=== PATIENT | male | born 1950 | race Caucasian/White ===

== ENCOUNTER 2019-01-04 10:45 | Inpatient (IN) | payer MEDICARE ==
[~2019-01-04] VITALS: Ht 180.3 cm; Wt 100.8 kg
[2019-01-04 11:51] LABS: BASOPHILS % (AUTO) 0.4 % (0.0-5.0); EOSINOPHILS % (AUTO) 0.9 % (0.0-8.0); HEMATOCRIT 27.8 % (42-54); LYMPHOCYTES % (AUTO) 25.6 % (21.0-51.0); MEAN CORPUSCULAR HEMOGLOBIN 30.4 pg (27.0-33.0); MEAN CORPUSCULAR HGB CONC 34.3 g/dL (32.0-36.0); MEAN CORPUSCULAR VOLUME 88.6 fL (79-99); NEUTROPHILS % (AUTO) 67.1 % (40.0-77.0); PLATELET COUNT (AUTO) 211 K/uL (130-400); RED BLOOD CELL COUNT(AUTO) 3.13 MIL/uL (4.50-6.20); RED CELL DISTRIBUTION WIDTH 15.1 % (11.0-15.5); WHITE BLOOD COUNT (AUTO) 6.1 K/uL (4.8-10.8)
[2019-01-04 11:58] LABS: APPEARANCE,URINE Clear (CLEAR); BILIRUBIN,URINE Negative (NEGATIVE); COLOR,URINE Yellow (YELLOW); GLUCOSE, URINE (UA) Negative (NEGATIVE); KETONES,URINE Negative (NEGATIVE); LEUKOCYTE ESTERASE ,URINE Negative (NEGATIVE); NITRATE,URINE Negative (NEGATIVE); OCCULT BLOOD,URINE Negative (NEGATIVE); PH,URINE 5.5 (5.0-8.0); PROTEIN,URINE Negative (NEGATIVE)
[2019-01-04 12:00] LABS: CREATININE 0.9 mg/dL (0.5-1.5); POTASSIUM 3.4 mmol/L (3.5-5.1)
[2019-01-04 12:06] LABS: ALBUMIN 3.7 g/dL (3.5-5.0); BILIRUBIN,TOTAL 0.5 mg/dL (0.2-1.0); TOTAL PROTEIN, SERUM 6.4 g/dL (6.0-8.3)
[2019-01-04 12:11] LABS: B-TYPE NATRIURETIC PEPTIDE 22 pg/mL (0-100)
[2019-01-04 12:30] LABS: INR 0.98 (0.85-1.15); PARTIAL THROMBOPLASTIN TIME 24.7 SEC (26.3-35.5); PROTHROMBIN TIME 10.3 SEC (9.6-11.6)
[2019-01-04 14:40] LABS: FERRITIN 7 ng/mL (30-400); IRON, SERUM 22 mcg/dL (65-175)
[2019-01-04 14:42] LABS: RETICULOCYTE % (AUTO) 6.22 % (0.42-2.23)
[2019-01-04] MEDS: IRON SUCROSE COMPLEX 100 MG in SODIUM CHLORIDE 0.9% 50 ML IV SCH (16:00)
[2019-01-04] MEDS ORDERED: HYDRALAZINE HCL 20 MG/ML VIAL IV PRN (16:00)
[2019-01-04] MEDS: POTASSIUM CHLORIDE 20 MEQ ERTAB PO SCH (16:00)
[2019-01-04] MEDS: LEVOFLOXACIN 500 MG/D5W 100 ML 100 ML IV SCH (16:00)
[2019-01-04] MEDS ORDERED: ACETAMINOPHEN 325 MG TAB PO PRN (16:00)
[2019-01-04] MEDS: METRONIDAZOLE 500MG/100ML BAG 100 ML IV SCH (16:00)
[2019-01-04] MEDS ORDERED: COMPOUND IV MISC 1 EACH IVSOLN MISC PRN (16:15)
[2019-01-04] MEDS ORDERED: LEVOFLOXACIN 500 MG/D5W 100 ML 100 ML ONE (16:21)
[2019-01-04] MEDS ORDERED: METRONIDAZOLE 500MG/100ML BAG 100 ML ONE (16:21)
[2019-01-04] MEDS ORDERED: SODIUM CHLORIDE 0.9% 1000ML 1,000 ML IV ONE (16:22)
[2019-01-04 19:16] LABS: PHOSPHORUS 2.6 mg/dL (2.5-4.9); THYROID STIMULATING HORMONE 0.79 uIU/mL (0.36-3.74)
[2019-01-04] MEDS ORDERED: FAMOTIDINE/PF 20 MG/2 ML VIAL IV ONE (20:39)
[2019-01-04] MEDS ORDERED: POTASSIUM CHLORIDE 20 MEQ ERTAB PO ONE (20:45)
[2019-01-04] MEDS ORDERED: MAGNESIUM 2GM PREMIX 50ML 50 ML IV ONE (20:52)
[2019-01-04] MEDS: FAMOTIDINE/PF 20 MG/2 ML VIAL IV SCH (21:00)
[2019-01-04 22:00] VITALS: BP 148/66
[2019-01-04] MEDS ORDERED: MAGNESIUM 2GM PREMIX 50ML 50 ML IV PRN (23:45)
[2019-01-05] VITALS: BP 126/69
[2019-01-05] MEDS: SODIUM CHLORIDE 0.9% 1000ML 1,000 ML IV SCH ×4 (00:19→12:11)
[2019-01-05] MEDS: METRONIDAZOLE 500MG/100ML BAG 100 ML IV SCH ×4 (00:26→23:53)
[2019-01-05] MEDS ORDERED: APIX5TAB PO (01:40)
[2019-01-05] MEDS ORDERED: PROP225T3 PO (01:40)
[2019-01-05] MEDS ORDERED: LOSA25TA41 PO (01:40)
[2019-01-05 04:00] VITALS: BP 108/48
[2019-01-05 06:26] LABS: BASOPHILS % (AUTO) 0.5 % (0.0-5.0); EOSINOPHILS % (AUTO) 0.7 % (0.0-8.0); HEMATOCRIT 24.1 % (42-54); LYMPHOCYTES % (AUTO) 27.8 % (21.0-51.0); MEAN CORPUSCULAR HEMOGLOBIN 31.2 pg (27.0-33.0); MEAN CORPUSCULAR HGB CONC 34.6 g/dL (32.0-36.0); MEAN CORPUSCULAR VOLUME 90.1 fL (79-99); MONOCYTES % (AUTO) 6.5 % (3.0-13.0); NEUTROPHILS % (AUTO) 64.5 % (40.0-77.0); NUCLEATED RED BLOOD CELLS 0.1 % (0.0-0.19); PLATELET COUNT (AUTO) 193 K/uL (130-400); RED BLOOD CELL COUNT(AUTO) 2.67 MIL/uL (4.50-6.20); RED CELL DISTRIBUTION WIDTH 15.1 % (11.0-15.5); WHITE BLOOD COUNT (AUTO) 7.3 K/uL (4.8-10.8)
[2019-01-05 06:30] LABS: CREATININE 0.9 mg/dL (0.5-1.5); MAGNESIUM 1.7 mg/dL (1.80-2.40); POTASSIUM 4.2 mmol/L (3.5-5.1)
[2019-01-05] MEDS: PROPAFENONE HCL 150 MG TABLET PO SCH ×3 (06:46→20:35)
[2019-01-05] MEDS: ACETAMINOPHEN 325 MG TAB PO PRN ×2 (06:57→12:15)
[2019-01-05 08:00] VITALS: BP 117/72
[2019-01-05] MEDS: IRON SUCROSE COMPLEX 100 MG in SODIUM CHLORIDE 0.9% 50 ML IV SCH (09:00)
[2019-01-05] MEDS: APIXABAN 5 MG TABLET PO SCH ×2 (09:26→20:35)
[2019-01-05] MEDS: FAMOTIDINE/PF 20 MG/2 ML VIAL IV SCH ×2 (09:27→20:35)
[2019-01-05 11:21] VITALS: BP 126/74
--- NOTE | 2019-01-05 11:56 | NUR ---
D/C PLAN CM spoke to pt regarding d/c plan. Spouse at bedside. Pt lives with spouse. States spouse can assist in care if needed. Denies having any home health or DME. State they recently moved and have not established themselves with a primary care physician. Plan to home. No needs verbalized or identified. CM to f/u. Addendum: 01/05/19 at 1158 by CHAPO RAMIRES CM Amended: Links added.
[2019-01-05] MEDS: TRAMADOL HCL 50 MG TABLET PO SCH ×2 (14:30→20:30)
[2019-01-05] MEDS ORDERED: TRAMADOL HCL 50 MG TABLET PO ONE (14:30)
[2019-01-05 16:00] VITALS: BP 131/74
[2019-01-05] MEDS: POTASSIUM CHLORIDE 20 MEQ ERTAB PO SCH (16:00)
[2019-01-05] MEDS: LEVOFLOXACIN 500 MG/D5W 100 ML 100 ML IV SCH (16:42)
[2019-01-05] MEDS ORDERED: MORPHINE SULFATE 2 MG/ML 1ML SYG ONE (16:44)
[2019-01-05] MEDS ORDERED: MORPHINE SULFATE 2 MG/ML 1ML SYG IVP ONE (16:45)
[2019-01-05 20:13] VITALS: BP 136/73
[2019-01-05] MEDS: LOSARTAN 50 MG TABLET PO SCH (20:35)
[2019-01-05] MEDS ORDERED: FERROUS SULFATE 300 MG/5 ML LIQ UDCUP PO SCH (21:00)
[2019-01-05] MEDS: MORPHINE SULFATE 2 MG/ML 1ML SYG IVP PRN (22:43)
[2019-01-06] VITALS (8 sets, daily range): BP systolic 99–125; BP diastolic 50–74
[2019-01-06] MEDS: TRAMADOL HCL 50 MG TABLET PO SCH ×4 (02:30→20:30)
[2019-01-06] MEDS: PROPAFENONE HCL 150 MG TABLET PO SCH ×3 (04:59→21:16)
[2019-01-06 06:45] LABS: BASOPHILS % (AUTO) 0.4 % (0.0-5.0); EOSINOPHILS % (AUTO) 1.6 % (0.0-8.0); HEMATOCRIT 24.6 % (42-54); LYMPHOCYTES % (AUTO) 25.8 % (21.0-51.0); MEAN CORPUSCULAR HEMOGLOBIN 30.6 pg (27.0-33.0); MEAN CORPUSCULAR HGB CONC 34.3 g/dL (32.0-36.0); MEAN CORPUSCULAR VOLUME 89.1 fL (79-99); MONOCYTES % (AUTO) 7.8 % (3.0-13.0); NEUTROPHILS % (AUTO) 64.4 % (40.0-77.0); NUCLEATED RED BLOOD CELLS 0.1 % (0.0-0.19); PLATELET COUNT (AUTO) 221 K/uL (130-400); RED BLOOD CELL COUNT(AUTO) 2.76 MIL/uL (4.50-6.20); RED CELL DISTRIBUTION WIDTH 14.8 % (11.0-15.5); WHITE BLOOD COUNT (AUTO) 6.9 K/uL (4.8-10.8)
[2019-01-06 06:56] LABS: CREATININE 0.8 mg/dL (0.5-1.5); POTASSIUM 3.9 mmol/L (3.5-5.1)
[2019-01-06 07:04] LABS: % IRON SATURATION 5.4 % (30-44)
[2019-01-06] MEDS: IRON SUCROSE COMPLEX 100 MG in SODIUM CHLORIDE 0.9% 50 ML IV SCH (10:35)
[2019-01-06] MEDS: FAMOTIDINE/PF 20 MG/2 ML VIAL IV SCH ×2 (10:35→21:16)
[2019-01-06] MEDS: APIXABAN 5 MG TABLET PO SCH ×2 (10:35→21:16)
[2019-01-06] MEDS: METRONIDAZOLE 500MG/100ML BAG 100 ML IV SCH (10:35)
[2019-01-06] MEDS: POTASSIUM CHLORIDE 20 MEQ ERTAB PO SCH (12:33)
[2019-01-06] MEDS: HYDROCODONE/ACETAMINOPHEN 5/325 MG TAB PO PRN ×2 (13:39→19:17)
[2019-01-06] MEDS: ONDANSETRON HCL 4 MG/2 ML VIAL IV PRN ×2 (13:44→19:17)
[2019-01-06] MEDS: LOSARTAN 50 MG TABLET PO SCH (21:16)
[2019-01-06] MEDS: MORPHINE SULFATE 2 MG/ML 1ML SYG IVP PRN (23:18)
[2019-01-07] MEDS: TRAMADOL HCL 50 MG TABLET PO SCH ×3 (02:30→14:42)
[2019-01-07 03:35] VITALS: BP 95/62
[2019-01-07 05:01] LABS: BASOPHILS % (AUTO) 0.3 % (0.0-5.0); EOSINOPHILS % (AUTO) 0.9 % (0.0-8.0); HEMATOCRIT 24.9 % (42-54); LYMPHOCYTES % (AUTO) 29.5 % (21.0-51.0); MEAN CORPUSCULAR HEMOGLOBIN 30.9 pg (27.0-33.0); MEAN CORPUSCULAR HGB CONC 34.6 g/dL (32.0-36.0); MEAN CORPUSCULAR VOLUME 89.1 fL (79-99); MONOCYTES % (AUTO) 6.5 % (3.0-13.0); NEUTROPHILS % (AUTO) 62.8 % (40.0-77.0); NUCLEATED RED BLOOD CELLS 0.1 % (0.0-0.19); PLATELET COUNT (AUTO) 214 K/uL (130-400); RED CELL DISTRIBUTION WIDTH 14.7 % (11.0-15.5); WHITE BLOOD COUNT (AUTO) 7.6 K/uL (4.8-10.8)
[2019-01-07] MEDS: PROPAFENONE HCL 150 MG TABLET PO SCH ×2 (05:05→12:57)
[2019-01-07 05:11] LABS: CREATININE 0.8 mg/dL (0.5-1.5); POTASSIUM 4.4 mmol/L (3.5-5.1)
[2019-01-07 08:00] VITALS: BP 119/67
[2019-01-07] MEDS: IRON SUCROSE COMPLEX 100 MG in SODIUM CHLORIDE 0.9% 50 ML IV SCH (09:00)
[2019-01-07] MEDS: APIXABAN 5 MG TABLET PO SCH (10:05)
[2019-01-07] MEDS: FAMOTIDINE/PF 20 MG/2 ML VIAL IV SCH (10:05)
[2019-01-07 12:00] VITALS: BP 111/59
[2019-01-07] MEDS ORDERED: FERR325T22 PO (14:17)
[2019-01-07 16:00] VITALS: BP 112/55
--- NOTE | 2019-01-07 17:24 | NUR ---
PATIENT DISCHARGED PATIENT DISCHARGED, IV DISCONTINUED, CATHLON INTACT, BLEEDING CONTROLLED, PATIENT TOLERATED WITHOUT INCIDENT.
== END 2019-01-07 17:30 | disposition home or self-care (01) | DRG 812 ==
LOC: EDH 10:45 → OBSVTOIN 15:52 → EDHIP 15:52 → 3DH 20:41
PROVIDERS: ADMIT Internal Medicine; ATTEND Internal Medicine
DX: D50.9 Iron deficiency anemia, unspecified (principal); E87.6 Hypokalemia; I48.91 Unspecified atrial fibrillation; Z98.42 Cataract extraction status, left eye; Z98.41 Cataract extraction status, right eye
CPT/HCPCS: 36415; 70450; 71045; 74176; 80048; 80053; 81003; 82150; 82550; 82728; 83540; 83550; 83690; 83735; 83880; 84100; 84145; 84443; 84484; 85025; 85045; 85610; 85730; 93005; G0378; J1756; J1956; J2405; J3475; J3490; J7030

== ENCOUNTER 2019-12-27 07:28 | Day surgery (SDC) | payer MEDICARE ==
--- NOTE | 2019-12-26 10:55 | NUR ---
Pt received Pt was received from PACU via stretcher accompanied by ROCHELLE Mckeon. Pt was restless, crying, responding by nodding head only, hands shaking. Pt able to make eye contact when spoken. Pt not responding verbally. VS wnl. Has band aid to abdomen dry and intact with samara pad in place with scant bleeding noted. Pt looking around with freighting look but unable to respond verbally when asked if ok or if something was wrong. Dr. Sagastume made aware. Stated would come to assess pt. Addendum: 12/26/19 at 1830 by CHEKO MONTANO RN RN Dr. Sagastume ordered to give Versed 1mg IV. Med adminsitered as ordered with no result.
--- NOTE | 2019-12-26 11:30 | NUR ---
here Dr. Sagastume arrived assessing patient. Stated to have (hosptalist) evaluate patient. Dr. Carnes made aware and arrived few minutes after call. Dr. Carnes here and ordered Ativan 0.5mg IV. Med given with no results. Ordered to repeat dose.
--- NOTE | 2019-12-26 12:00 | NUR ---
Adwoa Hylton, Dr. Sagastume and Dr. Carnes present assessing pt. Continues with same behavior, VS wnl. Dr. Carnes ordered Benadryl 25mg IV and for pt to be admitted for observation. Dr. Carnes called pt's mother and made her aware of condition. Stretcher with side rails padded.
--- NOTE | 2019-12-26 12:20 | NUR ---
F/U Pt sleeping comfortably at this time. VS wnl. O2 sats remain above 97% at room air. Significant other at bedside and made aware of occurence. Will continue to monitor.
--- NOTE | 2019-12-26 13:00 | NUR ---
Pt sleeping Pt continues sleeping; VS wnl. O2 sat above 98%. Significant other at bedside. Dr. Carnes in dept. assessing pt.
--- NOTE | 2019-12-26 15:00 | NUR ---
Pt transfer Pt prepared to transfer to room 311. Pt continues sleeping but arousable, responding to questions appropriately. Speech clear. Pt was received by ROCHELLE Norton. Report given.
[2019-12-26 15:45] LABS: BASOPHILS % (AUTO) 0.7 % (0.0-5.0); EOSINOPHILS % (AUTO) 1.5 % (0.0-8.0); HEMATOCRIT 52.5 % (42-54); LYMPHOCYTES % (AUTO) 27.3 % (21.0-51.0); MEAN CORPUSCULAR HEMOGLOBIN 30.5 pg (27.0-33.0); MEAN CORPUSCULAR HGB CONC 34.5 g/dL (32.0-36.0); MEAN CORPUSCULAR VOLUME 88.5 fL (79-99); NEUTROPHILS % (AUTO) 63.3 % (40.0-77.0); PLATELET COUNT (AUTO) 263 K/uL (130-400); RED BLOOD CELL COUNT(AUTO) 5.93 MIL/uL (4.50-6.20); RED CELL DISTRIBUTION WIDTH 13.2 % (11.0-15.5); WHITE BLOOD COUNT (AUTO) 9.1 K/uL (4.8-10.8)
[2019-12-26 15:52] LABS: CREATININE 0.8 mg/dL (0.5-1.5); POTASSIUM 4.5 mmol/L (3.5-5.1)
[2019-12-26 17:42] VITALS: BP 150/80
[~2019-12-27] VITALS: Ht 180.3 cm; Wt 98.0 kg
[2019-12-27] VITALS (14 sets, daily range): BP systolic 111–141; BP diastolic 68–87
[~2019-12-27 07:28] MED LIST: AEC81 PO; APIX5TAB PO; DOCU-116 PO; LOSA25TA41 PO; PROP225T3 PO
[2019-12-27] MEDS ORDERED: SODIUM CHLORIDE 0.9% 1000ML 1,000 ML IV SCH (08:00)
[2019-12-27] MEDS ORDERED: FENTANYL CITRATE PF 50 MCG/1 ML 2ML VIAL ONE (08:46)
[2019-12-27] MEDS ORDERED: MIDAZOLAM HCL 1 MG/ML 2ML VIAL ONE (08:47)
[2019-12-27] MEDS ORDERED: ONDANSETRON HCL 4 MG/2 ML VIAL ONE (09:52)
== END 2019-12-27 10:40 | disposition home or self-care (01) ==
LOC: DAH 07:28 → SUH 07:28
PROVIDERS: ATTEND Internal Medicine Cardiovascular Disease
DX: I48.0 Paroxysmal atrial fibrillation (principal); D68.59 Other primary thrombophilia; I10 Essential (primary) hypertension; G47.33 Obstructive sleep apnea (adult) (pediatric); M19.90 Unspecified osteoarthritis, unspecified site; Z79.01 Long term (current) use of anticoagulants; Z79.82 Long term (current) use of aspirin; Z79.899 Other long term (current) drug therapy; Z87.891 Personal history of nicotine dependence
CPT/HCPCS: 36415; 80048; 85025; 92960; 93005 ×2; A4215; A4216; A4221; A4222; A4223 ×3; A4600; A4606; A4663; J2250; J2405; J3010; J7030; 99152

== ENCOUNTER → 2020-02-21 | Outpatient (CLI) | payer MEDICARE | END | disposition home or self-care (01) | LOC: SHCH 08:30 | PROVIDERS: ATTEND Internal Medicine Cardiovascular Disease | DX: I48.0 Paroxysmal atrial fibrillation (principal); R06.09 Other forms of dyspnea | CPT/HCPCS: 93306; 93356 ==

== ENCOUNTER → 2021-11-17 | Outpatient (CLI) | payer MEDICARE | END | disposition home or self-care (01) | LOC: SHCH 15:32 | PROVIDERS: ATTEND Internal Medicine Cardiovascular Disease | DX: I11.9 Hypertensive heart disease without heart failure (principal); I48.0 Paroxysmal atrial fibrillation; F17.200 Nicotine dependence, unspecified, uncomplicated; I48.20 Chronic atrial fibrillation, unspecified | CPT/HCPCS: 93306 ==

== ENCOUNTER 2021-12-28 06:54 | Day surgery (SDC) | payer MEDICARE ==
[2021-12-23 13:58] LABS: HEMATOCRIT 51.9 % (42-54); MEAN CORPUSCULAR HEMOGLOBIN 30.4 pg (27.0-33.0); MEAN CORPUSCULAR HGB CONC 34.7 g/dL (32.0-36.0); MEAN CORPUSCULAR VOLUME 87.7 fL (79-99); PLATELET COUNT (AUTO) 217 K/uL (130-400); RED BLOOD CELL COUNT(AUTO) 5.92 MIL/uL (4.50-6.20); RED CELL DISTRIBUTION WIDTH 13.4 % (11.0-15.5); WHITE BLOOD COUNT (AUTO) 7.8 K/uL (4.8-10.8)
[2021-12-23 14:06] LABS: CREATININE 0.9 mg/dL (0.5-1.5); POTASSIUM 4.3 mmol/L (3.5-5.1)
[2021-12-23 14:09] LABS: PROTHROMBIN TIME 10.9 SEC (9.6-11.6)
[2021-12-23 16:00] LABS: BASOPHILS % (MANUAL) 1 % (0-2); EOSINOPHILS % (MANUAL) 7 % (1-6); LYMPHOCYTES % (MANUAL) 30 % (22-44); MAN.DIFF COMMENT-IMPRESSION MANUAL DIFFERENTIAL; MONOCYTES % (MANUAL) 8 % (2-9); SEGMENTED NEUTROPHILS % 54 % (40-70)
[2021-12-23 16:01] LABS: PLATELET MORPHOLOGY COMMENT ADEQUATE
[2021-12-24 11:21] VITALS: BP 149/84
[2021-12-27 08:52] VITALS: BP 145/88
[~2021-12-28] VITALS: Ht 180.3 cm; Wt 102.5 kg
[2021-12-28] VITALS (17 sets, daily range): BP systolic 102–130; BP diastolic 62–84
[~2021-12-28 06:54] MED LIST changes: +0.9%NACL 1000ML 1,000 ML IV SCH; -AEC81 PO; -DOCU-116 PO; +FENTANYL CITRATE PF 50 MCG/1 ML 2ML VIAL ONE; +FLUMAZENIL 0.1MG/1ML 5ML VIAL IV ONE; +MIDAZOLAM HCL 1 MG/ML 2ML VIAL ONE; +NALOXONE HCL 0.4 MG/1 ML ML ONE; +ONDANSETRON 4MG INJ ONE
[2021-12-28] MEDS ORDERED: FLUMAZENIL 0.1MG/1ML 5ML VIAL IV ONE (07:46)
[2021-12-28] MEDS ORDERED: FENTANYL CITRATE PF 50 MCG/1 ML 2ML VIAL ONE (07:47)
[2021-12-28] MEDS ORDERED: NALOXONE HCL 0.4 MG/1 ML ML ONE (07:47)
[2021-12-28] MEDS ORDERED: MIDAZOLAM HCL 1 MG/ML 2ML VIAL ONE (07:48)
[2021-12-28] MEDS ORDERED: 0.9%NACL 1000ML 1,000 ML IV ONE (08:17)
[2021-12-28] MEDS ORDERED: ONDANSETRON 4MG INJ ONE (08:40)
== END 2021-12-28 12:00 | disposition home or self-care (01) ==
LOC: CLH 06:54 → DAH 07:00 → CLH 12:00
PROVIDERS: ATTEND Internal Medicine Cardiovascular Disease
DX: I48.0 Paroxysmal atrial fibrillation (principal); I11.9 Hypertensive heart disease without heart failure; E66.9 Obesity, unspecified; D50.9 Iron deficiency anemia, unspecified; G47.33 Obstructive sleep apnea (adult) (pediatric); M19.90 Unspecified osteoarthritis, unspecified site; Z79.82 Long term (current) use of aspirin; Z98.890 Other specified postprocedural states; Z90.49 Acquired absence of other specified parts of digestive tract; Z87.891 Personal history of nicotine dependence; Z72.89 Other problems related to lifestyle; Z82.49 Family history of ischemic heart disease and other diseases of the circulatory system; Z68.31 Body mass index [BMI] 31.0-31.9, adult; Z79.01 Long term (current) use of anticoagulants; Z79.899 Other long term (current) drug therapy
CPT/HCPCS: 80048; 85025; 85610; 85730; 36415; 92960; 93005 ×3; A4223 ×3; A4615; A4215; A7002; A4222; A4221; A4663; A4216; A4606; J3010; J7030; J2250; J2405; 99152; J2310; J3490

== ENCOUNTER → 2023-12-14 | Outpatient (CLI) | payer MEDICARE ==
[~2023-12-14] MED LIST changes: -0.9%NACL 1000ML 1,000 ML IV SCH; -FENTANYL CITRATE PF 50 MCG/1 ML 2ML VIAL ONE; -FLUMAZENIL 0.1MG/1ML 5ML VIAL IV ONE; -LOSA25TA41 PO; +METO25TA6 PO; -MIDAZOLAM HCL 1 MG/ML 2ML VIAL ONE; -NALOXONE HCL 0.4 MG/1 ML ML ONE; -ONDANSETRON 4MG INJ ONE; +VALA100031 PO
[2023-12-14 12:19] LABS: CREATININE 0.8 mg/dL (0.5-1.3); POTASSIUM 4.2 mmol/L (3.5-5.1)
== END | disposition home or self-care (01) ==
LOC: LAB 10:28
PROVIDERS: ATTEND Student in an Organized Health Care Education/Training Program
DX: I48.0 Paroxysmal atrial fibrillation (principal)
CPT/HCPCS: 36415; 80048

== ENCOUNTER → 2023-12-19 | Outpatient (CLI) | payer MEDICARE ==
[~2023-12-19] MED LIST changes: +IOHEXOL 350 MG/ML 100ML INFUS..BTL IV ONE
== END | disposition home or self-care (01) ==
LOC: RAH 07:25
PROVIDERS: ATTEND Internal Medicine Cardiovascular Disease
DX: R91.1 Solitary pulmonary nodule (principal); I48.0 Paroxysmal atrial fibrillation
CPT/HCPCS: 71275; Q9967

== ENCOUNTER 2024-01-30 05:55 | Observation (INO) | payer MEDICARE ==
[2024-01-26 10:07] LABS: BASOPHILS # (AUTO) 0.05 K/uL (0.00-0.20); BASOPHILS % (AUTO) 0.7 % (0.0-5.0); EOSINOPHILS # (AUTO) 0.09 K/uL (0.00-0.70); EOSINOPHILS % (AUTO) 1.2 % (0.0-8.0); HEMATOCRIT 46.6 % (42-54); IMMATURE GRANULOCYTE ABSOLUTE 0.03 K/uL (0-1); LYMPHOCYTES # (AUTO) 1.8 K/uL (1.0-4.8); LYMPHOCYTES % (AUTO) 25.2 % (21.0-51.0); MEAN CORPUSCULAR HEMOGLOBIN 31.1 pg (27.0-33.0); MEAN CORPUSCULAR HGB CONC 35.4 g/dL (32.0-36.0); MEAN CORPUSCULAR VOLUME 87.9 fL (79-99); MONOCYTES # (AUTO) 0.5 K/uL (0.1-1.0); MONOCYTES % (AUTO) 6.3 % (3.0-13.0); NEUTROPHILS # (AUTO) 4.8 K/uL (1.8-7.7); NEUTROPHILS % (AUTO) 66.2 % (40.0-77.0); PLATELET COUNT (AUTO) 199 K/uL (130-400); RED CELL DISTRIBUTION WIDTH 13.7 % (11.0-15.5); WHITE BLOOD COUNT (AUTO) 7.3 K/uL (4.8-10.8)
[2024-01-26 10:15] LABS: CREATININE 0.9 mg/dL (0.5-1.3); PARTIAL THROMBOPLASTIN TIME 27.9 SEC (26.3-35.5); POTASSIUM 4.1 mmol/L (3.5-5.1)
[2024-01-26 10:43] VITALS: BP 162/74; PULSE 67; RESP 18; TEMP 98.6
[2024-01-26 11:31] LABS: INR 1.03 (0.85-1.15); PROTHROMBIN TIME 11.1 SEC (9.6-11.6)
--- NOTE | 2024-01-27 15:10 | EKG ---
[facility] Test Date: 2024-01-26 Test Time: 10:49:08 Pat Name: NAOMI JUSTIN Department: [facility] Room: Gender: M Urologist Md: [id number] : 1950 Requested By: PORTIA BERNAL Order Number: [id number] Reading MD: Arnoldo Rolon Measurements Intervals [place] Rate: 64 P: -22 WI: 267 QRS: -18 QRSD: 108 T: 18 QT: 432 QTc: 447 Interpretive Statements Sinus rhythm Prolonged WI interval Compared to ECG 11/10/2023 11:32:44 T-wave abnormality no longer present Electronically Signed On 01-27-2024 17:37:02 SENIOR FIRE PROTECTION ENGINEER by Arnoldo Rolon Please click the below link to view image of tracing.
[2024-01-30] VITALS (29 sets, daily range): BP systolic 81–150; BP diastolic 39–93; PULSE 62–88; RESP 12–23; TEMP 97.1–98.4; O2SAT 98–100
[~2024-01-30] VITALS: Ht 180.3 cm; Wt 103.4 kg
[~2024-01-30 05:55] MED LIST changes: -IOHEXOL 350 MG/ML 100ML INFUS..BTL IV ONE; -METO25TA6 PO; -VALA100031 PO
[2024-01-30] MEDS: 0.9%NACL 1000ML 1,000 ML IV ONE (06:54)
[2024-01-30] MEDS ORDERED: rocuRONium bROMide 10MG/1ML 5ML VL ONE ×3 (07:00→09:48)
[2024-01-30] MEDS ORDERED: SUCCINYLCHOLINE CHLORIDE 20 MG/ML 10 ML VIAL ONE (07:00)
[2024-01-30] MEDS ORDERED: LIDOCAINE PF 100MG/5ML (2%) SYRINGE 5ML ONE ×2 (07:00→07:02)
[2024-01-30] MEDS ORDERED: dexaMETHasone SOD PHOSPHATE 10MG/ML 1ML VIAL ONE (07:00)
[2024-01-30] MEDS ORDERED: GLYCOPYRROLATE 0.2 MG/ML 5 ML VIAL ONE (07:00)
[2024-01-30] MEDS ORDERED: NEOSTIGMINE METHYLSULFATE 1MG/ML IV ONE (07:00)
[2024-01-30] MEDS ORDERED: ondanSETRON 4MG INJ ONE (07:00)
[2024-01-30] MEDS ORDERED: FENTanyl CITRate PF 50 MCG/1 ML 2ML VIAL ONE ×3 (07:01→11:02)
[2024-01-30] MEDS ORDERED: proPOFol 10 MG/ML 20ML VIAL IV ONE (07:01)
[2024-01-30] MEDS ORDERED: phenylEPHRINE HCL 10 MG/ML 1ML VIAL IV ONE (07:04)
[2024-01-30] MEDS ORDERED: MIDAZOLAM HCL 1 MG/ML 2ML VIAL ONE (07:13)
[2024-01-30] MEDS ORDERED: HEParin 10,000 UNIT/10ML (1,000 UNIT/ML) VIAL ONE (07:16)
[2024-01-30] MEDS ORDERED: LIDOCAINE HCL 400MG/20ML VIAL ONE (07:16)
[2024-01-30] MEDS ORDERED: HEParin-NS 1,000 UNIT/500 ML 1,500 ML IV ONE (07:16)
[2024-01-30] MEDS ORDERED: ePHEDrine SULFate 50 MG/ML AMPULE ONE (10:18)
[2024-01-30] MEDS ORDERED: PROTamine SULFate 10 MG/ML 25ML VIAL IV ONE (11:39)
[2024-01-30] MEDS: SUGAMMADEX SODIUM 200 MG/2 ML VIAL IV ONE (11:44)
[2024-01-30] MEDS: ondanSETRON 4MG INJ ONE (12:24)
[2024-01-30] MEDS: metoCLOPRAmide 10 MG/2 ML VIAL ONE (12:40)
[2024-01-30] MEDS: PROMETHAZINE HCL 25 MG/ML 1ML AMPULE IM ONE (12:40)
[2024-01-30] MEDS: PANTOPrazole 40 MG TAB DR PO ONE (14:11)
[2024-01-30] MEDS: PROPAFENONE HCL 150 MG TABLET PO SCH (14:11)
[2024-01-30] MEDS: SUCRALFATE 1 GM/10 ML PO SCH (14:11)
[2024-01-30] MEDS: acetaMINOPHEN 325 MG TAB PO PRN (14:19)
[2024-01-30] MEDS: acetaMINOPHEN 325 MG TAB ONE (14:19)
[2024-01-30 14:41] LABS: ALBUMIN 3.6 g/dL (3.5-5.0); BILIRUBIN,TOTAL 0.6 mg/dL (0.2-1.0); CREATININE 0.7 mg/dL (0.5-1.3); MAGNESIUM 1.6 mg/dL (1.80-2.40); POTASSIUM 4.2 mmol/L (3.5-5.1); TOTAL PROTEIN, SERUM 5.8 g/dL (6.0-8.3)
[2024-01-30] MEDS: MAGNESIUM 2GM PREMIX 50ML 50 ML IV PRN (15:14)
[2024-01-30] MEDS: MAGNESIUM 2GM PREMIX 50ML 50 ML IV ONE (15:15)
[2024-01-30] MEDS: HEParin 25,000 UNITS/250ML D5W 250 ML IV SCH (15:49)
[2024-01-30] MEDS: HEParin 5,000 UNIT VIAL IV PRN (17:58)
[2024-01-30] MEDS: HEParin 5,000 UNIT VIAL IV ONE (17:59)
[2024-01-30] MEDS ORDERED: APIXaban 5 MG TABLET PO SCH (21:00)
[2024-01-30] MEDS: APIXaban 5 MG TABLET PO SCH (21:21)
[2024-01-31 02:39] LABS: BASOPHILS # (AUTO) 0.03 K/uL (0.00-0.20); BASOPHILS % (AUTO) 0.3 % (0.0-5.0); EOSINOPHILS # (AUTO) 0.06 K/uL (0.00-0.70); EOSINOPHILS % (AUTO) 0.7 % (0.0-8.0); HEMATOCRIT 39.4 % (42-54); IMMATURE GRANULOCYTE ABSOLUTE 0.03 K/uL (0-1); LYMPHOCYTES # (AUTO) 1.6 K/uL (1.0-4.8); LYMPHOCYTES % (AUTO) 16.9 % (21.0-51.0); MEAN CORPUSCULAR HEMOGLOBIN 30.8 pg (27.0-33.0); MEAN CORPUSCULAR HGB CONC 34.3 g/dL (32.0-36.0); MEAN CORPUSCULAR VOLUME 89.7 fL (79-99); MONOCYTES # (AUTO) 0.6 K/uL (0.1-1.0); MONOCYTES % (AUTO) 6.4 % (3.0-13.0); NEUTROPHILS # (AUTO) 6.9 K/uL (1.8-7.7); NEUTROPHILS % (AUTO) 75.4 % (40.0-77.0); PLATELET COUNT (AUTO) 159 K/uL (130-400); RED BLOOD CELL COUNT(AUTO) 4.39 MIL/uL (4.50-6.20); WHITE BLOOD COUNT (AUTO) 9.2 K/uL (4.8-10.8)
[2024-01-31 04:00] VITALS: BP 111/56; PULSE 75; RESP 15
[2024-01-31 05:19] LABS: CREATININE 0.8 mg/dL (0.5-1.3)
[2024-01-31 08:00] VITALS: PULSE 77; RESP 12; TEMP 98.2
[2024-01-31 09:00] VITALS: O2SAT 99
[2024-01-31 09:34] VITALS: BP 126/73; PULSE 78; RESP 12
[2024-01-31] MEDS: PANTOPrazole 40 MG TAB DR PO SCH (09:44)
[2024-01-31] MEDS ORDERED: ondanSETRON 4MG INJ IVP PRN (10:00)
[2024-01-31 12:00] VITALS: PULSE 77; RESP 14; TEMP 98.5
[2024-01-31] MEDS ORDERED: PANT20TA PO (12:33)
[2024-01-31] MEDS ORDERED: PANT40TA55 PO (12:33)
[2024-01-31] MEDS ORDERED: SUCR1TAB2 PO (12:33)
[2024-01-31 13:00] VITALS: BP 126/80; PULSE 77; RESP 20
== END 2024-01-31 14:30 | disposition home or self-care (01) ==
LOC: DAH 05:55 → DAHIP 05:56 → 2CV 13:52
PROVIDERS: ADMIT Internal Medicine Cardiovascular Disease; ATTEND Internal Medicine Cardiovascular Disease
DX: I48.0 Paroxysmal atrial fibrillation (principal); I10 Essential (primary) hypertension; Z79.01 Long term (current) use of anticoagulants; Z79.899 Other long term (current) drug therapy; Z98.890 Other specified postprocedural states
CPT/HCPCS: 80048 ×2; 85025 ×2; 85610; 85730 ×4; 36415 ×3; 93005; 93656; 93657; 96376; 96372; 96365; 96366; 96375; 83735; 80053; 82948; C1894 ×3; C1732 ×3; A4649 ×2; C1760 ×3; C1766; G0378 ×27; J3475; J3010 ×3; J3490 ×6; J1100; J0330; J7030; J2720; J2550; J2003 ×2; J1644 ×5; J2250; J2704; J2405 ×3; J2710; J2765; J2371; A4215; A4223 ×3; A4222; A4221; A4663; A4216; A4606; 96361

== ENCOUNTER 2024-11-04 06:12 | Observation (INO) | payer MEDICARE ==
[2024-10-31 10:24] VITALS: BP 129/71; PULSE 88; RESP 17; TEMP 97.2
[2024-10-31 10:29] LABS: INR 1.01 (0.85-1.15)
--- NOTE | 2024-10-31 15:42 | NUR ---
preop jonatan rt instructed pt on incentive spirometry
[2024-11-04] VITALS (32 sets, daily range): BP systolic 106–151; BP diastolic 62–84; PULSE 76–97; RESP 14–19; TEMP 97.4–98.7; O2SAT 96–98
[~2024-11-04] VITALS: Ht 180.3 cm; Wt 94.3 kg
[~2024-11-04 06:12] MED LIST changes: +LOSA25TA41 PO; -PROP225T3 PO
[2024-11-04] MEDS: LACTATED RINGERS 1000ML 1,000 ML IV ONE (06:59)
[2024-11-04] MEDS ORDERED: LIDOCAINE HCL MPF 1% 5ML VIAL ONE (07:15)
[2024-11-04] MEDS ORDERED: MIDAZOLAM HCL 1 MG/ML 2ML VIAL ONE (07:17)
[2024-11-04] MEDS ORDERED: GLYCOPYRROLATE 0.2 MG/ML 5 ML VIAL ONE (07:23)
[2024-11-04] MEDS ORDERED: NEOSTIGMINE METHYLSULFATE 1MG/ML IV ONE (07:23)
[2024-11-04] MEDS: TRANEXAMIC ACID 1000MG/10ML ONE (08:29)
[2024-11-04] MEDS ORDERED: FERROUS FUMARATE 324 MG TABLET PO PRN (11:30)
[2024-11-04] MEDS ORDERED: PoTASSium chloRIDE 20MEQ ER 20 MEQ ERTAB PO PRN (11:30)
[2024-11-04] MEDS ORDERED: PoTASSium chl 10% ELIXIR 20MEQ 20 MEQ/15 ML UDCUP PO PRN (11:30)
[2024-11-04] MEDS ORDERED: CYCLOBENZAPRINE HCL 10 MG TABLET PO PRN (11:30)
[2024-11-04] MEDS ORDERED: HYDROcodone/APAP 5/325 1 TAB TABLET PO PRN ×2 (11:30→12:00)
--- NOTE | 2024-11-04 11:32 | DS ---
Discharge Summary Hospital Course Summary: The patient was admitted to the hospital postoperatively on 11/04/2024 after undergoing right total knee arthroplasty. They did well with routine postoperative pain control. They worked well with physical therapy. They developed some acute blood loss anemia but remained asymptomatic. The hospital course was otherwise uncomplicated. They were subsequently able to be discharged on postoperative day [] once discharge arrangements were made with home health physical therapy. Pool Coordinator(s): None Procedure(s): Right total knee arthroplasty, 11/04/2024 Assessment/Plan: ASSESSMENT: Status post right total knee arthroplasty Acute blood loss anemia, asymptomatic PLAN: See discharge instructions Home Medications: Reported Medications Losartan Potassium (Losartan Potassium) 25 Mg Tablet, 25 MG PO HS, TAB 02/19/24 Apixaban (Eliquis) 5 Mg Tablet, 5 MG PO BID, TAB 01/05/19 Discontinued Reported Medications Propafenone HCl (Propafenone HCl) 225 Mg Tablet, 225 MG PO TID, TAB 11/09/23 HARSHAL WALLACE MD Nov 04, 2024 11:32
--- NOTE | 2024-11-04 11:34 | OP ---
Operative Note: DATE OF PROCEDURE: 11/04/24 PREOPERATIVE DIAGNOSIS: Right knee osteoarthritis. POSTOPERATIVE DIAGNOSIS: Right knee osteoarthritis. PROCEDURE PERFORMED: Right knee total knee arthroplasty. SURGEON: Mary Montgomery MD DISTRICT FIRE MANAGEMENT OFFICER: Lilli Mcrae. ANESTHESIA: General with adductor canal block. ANESTHESIA: MISHA Burns. ESTIMATED BLOOD LOSS: 50cc. COMPLICATIONS: None. DRAINS: None. SPECIMENS REMOVED: resected bone. Not sent to pathology. IMPLANTS: [employer] II BCS size 8 Oxinium femur, size 7 tibial base plate, 35 x 7.5 mm patella, 9 mm polyethylene STATEMENT OF MEDICAL NECESSITY: The patient is a 74-year-old male who suffers from right knee osteoarthritis failing conservative management. After discussion of the risks, benefits, and alternatives with the patient, they voluntarily agreed to undergo the aforementioned procedure. DESCRIPTION OF PROCEDURE: Patient was properly identified in the preoperative holding area. Surgical site marking was verified and surgery consent reviewed. The patient was then taken to the operating room and placed in supine position on the OR table. After induction of general anesthesia, preoperative antibiotics were given, all bony prominences were well-padded, and a well padded tourniquet was applied but not inflated at this time. The right lower extremity was then prepped and draped in usual sterile fashion. Surgical time out was done verifying correct surgery, side, site, and location to be performed. We then began the procedure by exsanguinating the limb using an Esmarch and inflating the tourniquet to 350 mmHg. At this point, we made an anterior midline incision using a 10 blade, coming down sharply the level of the fascia. Skin flaps were elevated medially and laterally. We then obtained a clean 10 blade and performed a standard medial parapatellar arthrotomy. We excised the infrapatellar fat pad. We performed our soft tissue releases off of the tibia. We transected the ACL and removed the anterior portion of the medial & lateral meniscus. We then brought the knee into hyperflexion with the patella everted. We used our entry reamer to enter the femoral canal. We then placed our intramedullary cutting guide for our distal femoral cutting block. We then performed our distal femoral osteotomy ensuring appropriate rotation and removed the bony wafer. We then removed these pins and block and then used jig 2 to size the distal femur with the after mentioned size found. We then placed our 5-in-1 cutting block in 3 degrees of external rotation and took our 5 cuts ensuring to protect the patellar tendon and the collateral ligaments. We then removed the cutting block and our bony fragments using a curved osteotome. We then placed our PCL retractor subluxating the tibia anteriorly. Using an extra medullary tibial cutting guide, we hung the block for our proximal tibial cut taking 2 mm off the more diseased portion. Prior to pinning this block in place, we ensured appropriate varus/valgus alignment and posterior slope similar to the pokagon slope of the patient's knee. We then performed our proximal tibial osteotomy and removed the bony wafer using Bovie electrocautery to release any remaining soft tissue attachments. We then used our tibial sizing paddle and checked once more for varus & valgus alignment and found this to be appropriate. At this point, we pinned our tibial paddle in place. We then removed the PCL retractor and subluxated the tibia posteriorly while we placed our femoral trial component. We then finished preparing the notch with the reamer and box chisel. The notch portion of the trial femoral component was then placed. A posterior stabilized polyethylene, size 9 trial was placed. The knee was then taken through range of motion and found to have stable full range of motion. We then placed a bump under the ankle and everted the patella to perform our freehand cut of the undersurface the patella. We then sized our patella and reamed to the lug holes for this. We placed our trial patellar component and begin to take the knee through range of motion. The patella had extreme lateral tracking, and we performed a lateral release. However the patella continued to have significant lateral tracking. We adjusted our tibial component rotation and placed a towel clip to approximate the soft tissues and had slightly better patellar tracking. We therefore elected to go with the 7.5 mm thickness patellar component. At this point we began removing our trial components and punched the tibial keel prior to removing our tibial trial component. Final components were opened and cement was mixed on the back table while we injected local cocktail in the posterior capsule. We then thoroughly irrigated out the bone and dried the bony surfaces. We cemented our tibial component in place ensuring to remove excess cement and placed our trial polyethylene. We then cemented our femoral component in place once again taking time to ensure excess cement was removed leg was brought into full extension to help squeeze the excess cement from around the femoral component. We then brought the knee back in a flexion to remove this portion of the cement at this point we placed the ankle in a bump thoroughly irrigated off the patellar component and cemented our patellar component in standard fashion again removing excess cement. While we waited for the cement to cure, we thoroughly irrigated out the wound with normal saline. Once our cement had cured, we took the knee through a range of motion and found full and stable range of motion. We then elected to use the size 9 polyethylene and removed our trial polyethylene. We impacted our final polyethylene component in place in standard fashion and took the knee through a range of motion check once more. This was satisfactory so we began to repair the arthrotomy using #1 Vicryl in interrupted [id number] fashion. Subcutaneous tissue was repaired using 2-0 Vicryl. Running subcuticular 3-0 Monocryl stitch with Dermabond placed over this for the skin. We then applied a foam barrier dressing and a pressure dressing consisting of 4 x 4's fluffs and an Carlos wrap. The tourniquet was then deflated. Patient was awakened from anesthesia, and they were taken to the recovery room in stable condition. MARY MONTGOMERY MD Nov 04, 2024 11:34
--- NOTE | 2024-11-04 11:53 | HMCIMG ---
EXAM: CR right Knee, 2 View. CLINICAL HISTORY: S/P RT TKA SURGERY COMPARISON: None provided. FINDINGS: Right total knee arthroplasty is in near anatomic alignment with no periprosthetic fracture appreciated. Air and small fluid within the knee joint. Appropriate postsurgical changes within the surrounding soft tissues. No displaced fracture appreciated. IMPRESSION: 1. Status post right total knee arthroplasty in near anatomic alignment with expected postsurgical changes. /Lewis
--- NOTE | 2024-11-04 12:10 | NUR ---
UNIT ARRIVAL RECEIVED PATIENT FROM PACU NURSE EVAN. PATIENT WITH EMESIS. ZOFRAN ADMINISTERED 20 MIN AGO PER EVAN. VITAL SIGNS WITHIN NORMAL LIMITS BLOOD PRESSURE 135/67 SPO2 98% 2L NC HEART RATE 90 RR 18. PATIENT REPORTS NO PAIN AT THIS TIME. RESPIRATORY THERAPY NOTIFIED. NEURO CHECKS OBTAINED.
--- NOTE | 2024-11-04 14:05 | NUR ---
PT eval attempted. Pt tape control skin or spar mill operator light asking for pain meds and nausea meds. Nurse aware. Pt given ice packs. Pt has water, SCDs, call alarm and fall bang. Will follow after meds.
[2024-11-04] MEDS: 0.9%NACL 1000ML 1,000 ML IV SCH (14:12)
--- NOTE | 2024-11-04 16:06 | NUR ---
3rd attempt for PT evaluation. Per nurse patient will be able to have nausea medications at aprox 1500, and at that time he will get pain medications also. Pt still having emesis, does not want to risk vomiting after pain medications. Checked on patient at this time,meds pending and TANK CLEANER cleaning bedding from emesis.
[2024-11-04] MEDS: HYDROcodone/APAP 5/325 1 TAB TABLET PO PRN (16:08)
--- NOTE | 2024-11-04 16:15 | NUR ---
ORTHO COORDINATOR: TEACHING REGARDING DVT AND PNEUMONIA PREVENTION, PAIN EXPECTATIONS AND PAIN MANAGEMENT. PATIENT IN BED, HOLDING EMESIS BAG. REPORTS NAUSEA, NO VOMITING. STATES JUST RECEIVED PAIN MEDICATION AND NAUSEA MEDICATION. AT BEDSIDE. B SCD SLEEVES IN PLACE AND FUNCTIONING. INCENTIVE SPIROMETER AT BEDSIDE. PATIENT VERBALIZED PROPER FREQUENCY OF USE AND PURPOSE OF INCENTIVE SPIROMETER. PAIN EXPECTATIONS REVIEWED. PATIENT ENCOURAGED TO PERFORM SELF PAIN ASSESSMENTS AT THE MINIMUM EVERY 4 HOURS ON THE 0400, 0800,1200 ETC. PATIENT INSTRUCTED TO ASSIGN NUMERIC VALUE TO PAIN AND VERBALIZE TYPE OF PAIN. PAIN MANAGEMENT STRATEGY REVIEWED. QUESTIONS ANSWERED. BOTTOM OF BED RAISED. RETURNED TO FLAT POSITION, RATIONALE PROVIDED. PATIENT AND VERBALIZED UNDERSTANDING. PATIENT INTENDS TO DISCHARGE HOME WITH HOME HEALTH. REVIEWED HOME HEALTH PROCESS TO INCLUDE FIRST AND SECOND VISIT. PATIENT AND VERBALIZED UNDERSTANDING. SET EXPECTATIONS FOR PATIENT TO SHOWER TOMORROW, RATIONALE PROVIDED. NO ADDITIONAL QUESTIONS OR CONCERNS AT THIS TIME. 1630: ATTEMPTED TO REVIEW PATIENT CARE STRATEGY, PRIMARY NURSE UNAVAILABLE.
[2024-11-05 04:25] LABS: NUCLEATED RED BLOOD CELLS 0.0 % (0.0-0.19); PLATELET COUNT (AUTO) 210.0 K/uL (130-400); RED BLOOD CELL COUNT(AUTO) 4.3 MIL/uL (4.50-6.20); RED CELL DISTRIBUTION WIDTH 13.3 % (11.0-15.5); WHITE BLOOD COUNT (AUTO) 12.3 K/uL (4.8-10.8)
[2024-11-05 04:35] LABS: CREATININE 0.7 mg/dL (0.5-1.3); GLOMERULAR FILTR. RATE CALC 98.0 mL/min (>90); GLUCOSE,RANDOM 111.0 mg/dL (70-105); SODIUM SERUM 143.0 mmol/L (136-145); UREA NITROGEN, BLOOD 14.0 mg/dL (7-18)
[2024-11-05 04:42] VITALS: BP 115/75; PULSE 77; RESP 20; TEMP 98
[2024-11-05 08:00] VITALS: BP 105/73; PULSE 87; RESP 19; TEMP 98.2; O2SAT 96
--- NOTE | 2024-11-05 08:07 | PN ---
Ortho postop day one. This morning the patient is awake alert and already out of bed seated in a chair he has already had his breakfast. He is still reporting intermittent nausea states that he has it in conjunction with the pain medication. States that he does not do well with the pain medication. I have informed the patient that perhaps we may have to discharge him with something less potent. For now we will keep observing. He is in no acute distress. Vital signs have remained stable afebrile. Laboratory results review drop in hemoglobin and as expected after TKA patient is asymptomatic we will continue to observe and address as necessary per protocol. The Carlos bandage his already been removed this morning and the dressing to the anterior joint is intact. He is alternating extension and flexion while seated in the chair. Reinforced incentive spirometry. He is having some belching but yet to have any flatulence. Voiding on his own without difficulty. He was able to ambulate about25 ft yesterday with physical therapy and is pending more therapy today. Anticipated discharge goal is home health/PT. Assessment: Status post right total knee arthroplasty. Acute postoperative blood loss anemia. Plan: Continue with Dr. Montgomery's TKA protocol and discharge planning. Acute postoperative blood loss anemia addressed per protocol as necessary Vitals/Labs Vital Signs Date Time Temp Pulse Resp B/P (MAP) Pulse Ox O2 Delivery O2 Flow Rate FiO2 11/05/24 04:42 98.1 77 20 115/75 96 Room Air 11/04/24 23:49 21 11/04/24 20:00 0 Laboratory Tests 11/05/24 03:30 Medications Current Medications Cefazolin Sodium 2 gm STK-MED ONCE .ROUTE Last administered on 11/04/24at 08:38; Start 11/04/24 at 06:38; Stop 11/04/24 at 06:42; Status DC Lactated Ringer's 1,000 ml @ As Directed STK-MED ONCE IV Last administered on 11/04/24at 06:59; Start 11/04/24 at 06:38; Stop 11/04/24 at 06:42; Status DC Lidocaine HCl 5 ml STK-MED ONCE .ROUTE; Start 11/04/24 at 07:15; Stop 11/04/24 at 07:16; Status DC Dexamethasone Sodium Phosphate 4 mg STK-MED ONCE .ROUTE; Start 11/04/24 at 07:15; Stop 11/04/24 at 07:16; Status DC Propofol 200 mg STK-MED ONCE IV; Start 11/04/24 at 07:17; Stop 11/04/24 at 07:17; Status DC Midazolam HCl 2 mg STK-MED ONCE .ROUTE; Start 11/04/24 at 07:17; Stop 11/04/24 at 07:17; Status DC Rocuronium Kistler 50 mg STK-MED ONCE .ROUTE; Start 11/04/24 at 07:17; Stop 11/04/24 at 07:17; Status DC Tranexamic Acid 1,000 mg STK-MED ONCE .ROUTE Last administered on 11/04/24at 08:29; Start 11/04/24 at 07:17; Stop 11/04/24 at 07:18; Status DC Ketorolac Tromethamine 30 mg STK-MED ONCE .ROUTE Last administered on 11/04/24at 09:11; Start 11/04/24 at 07:19; Stop 11/04/24 at 07:19; Status DC Fentanyl Citrate 100 mcg STK-MED ONCE .ROUTE; Start 11/04/24 at 07:19; Stop 11/04/24 at 07:19; Status DC Ropivacaine 150 mg STK-MED ONCE .ROUTE Last administered on 11/04/24at 09:11; Start 11/04/24 at 07:20; Stop 11/04/24 at 07:20; Status DC Phenylephrine HCl 10 mg STK-MED ONCE IV; Start 11/04/24 at 07:23; Stop 11/04/24 at 07:23; Status DC Glycopyrrolate 1 mg STK-MED ONCE .ROUTE; Start 11/04/24 at 07:23; Stop 11/04/24 at 07:24; Status DC Neostigmine Methylsulfate 10 mg STK-MED ONCE IV; Start 11/04/24 at 07:23; Stop 11/04/24 at 07:24; Status DC Ropivacaine 150 mg STK-MED ONCE .ROUTE; Start 11/04/24 at 08:19; Stop 11/04/24 at 08:20; Status DC Acetaminophen 100 ml @ As Directed STK-MED ONCE .ROUTE; Start 11/04/24 at 08:19; Stop 11/04/24 at 08:20; Status DC Ketamine HCl 50 mg STK-MED ONCE .ROUTE; Start 11/04/24 at 08:20; Stop 11/04/24 at 08:20; Status DC Sodium Chloride 1,000 ml @ 100 mls/hr Q10H IV Last administered on 11/04/24at 20:20; Start 11/04/24 at 11:30; Stop 11/05/24 at 11:29 Polyethylene Glycol 17 gm DAILY PO; Start 11/05/24 at 09:00; Stop 12/05/24 at 08:59 Bisacodyl 10 mg DAILY PRN RC; Start 11/07/24 at 11:30; Stop 12/07/24 at 11:29 Ketorolac Tromethamine 15 mg Q6H PRN IV; Start 11/05/24 at 11:30; Stop 11/10/24 at 11:29 Ferrous Fumarate 324 mg DAILY PRN PO; Start 11/04/24 at 11:30; Stop 12/04/24 at 11:29 Ondansetron HCl 4 mg Q6H PRN IVP Last administered on 11/05/24at 03:00; Start 11/04/24 at 11:30; Stop 12/04/24 at 11:29 Calcium Carbonate 500 mg Q12H PRN PO; Start 11/04/24 at 11:30; Stop 12/04/24 at 11:29 Cefazolin Sodium 2 gm Q8H IVP Last administered on 11/05/24at 00:44; Start 11/04/24 at 16:30; Stop 11/05/24 at 00:31; Status DC Cyclobenzaprine HCl 5 mg Q8H PRN PO; Start 11/04/24 at 11:30; Stop 12/04/24 at 11:29 Gabapentin 100 mg TID PO Last administered on 11/04/24at 20:20; Start 11/04/24 at 14:00; Stop 12/04/24 at 13:59 Aspirin 325 mg DAILY PO; Start 11/05/24 at 09:00; Stop 12/05/24 at 08:59 Ketorolac Tromethamine 15 mg Q8H IV Last administered on 11/05/24at 03:00; Start 11/04/24 at 11:30; Stop 11/05/24 at 03:31; Status DC Docusate Sodium 100 mg BID PO Last administered on 11/04/24at 20:19; Start 11/04/24 at 21:00; Stop 12/04/24 at 20:59 Potassium Chloride 100 ml @ 100 mls/hr AD PRN IV; Start 11/04/24 at 11:30; Stop 12/04/24 at 11:29 Potassium Chloride 20 meq AD PRN PO; Start 11/04/24 at 11:30; Stop 12/04/24 at 11:29 Potassium Chloride 20 meq AD PRN PO; Start 11/04/24 at 11:30; Stop 12/04/24 at 11:29 Tramadol HCl 50 mg Q6H PRN PO; Start 11/04/24 at 11:30; Stop 11/09/24 at 11:29 Acetaminophen/ Hydrocodone Bitart Q4H PRN PO; Start 11/04/24 at 11:30; Stop 11/04/24 at 11:55; Status DC Ketorolac Tromethamine 15 mg STK-MED ONCE .ROUTE Last administered on 11/04/24at 11:44; Start 11/04/24 at 11:37; Stop 11/04/24 at 11:42; Status DC Ondansetron HCl 4 mg STK-MED ONCE .ROUTE Last administered on 11/04/24at 11:44; Start 11/04/24 at 11:42; Stop 11/04/24 at 11:43; Status DC Acetaminophen/ Hydrocodone Bitart 1 tab Q4H PRN PO Last administered on 11/04/24at 16:08; Start 11/04/24 at 12:00; Stop 11/09/24 at 11:59 Acetaminophen/ Hydrocodone Bitart 2 tab Q6H PRN PO; Start 11/04/24 at 12:00; Stop 11/09/24 at 11:59 Apixaban 5 mg BID PO; Start 11/05/24 at 09:00; Stop 12/05/24 at 08:59 Losartan Potassium 25 mg HS PO; Start 11/05/24 at 21:00; Stop 12/05/24 at 20:59 DIANA ASHTON NP Nov 05, 2024 08:07
--- NOTE | 2024-11-05 09:15 | NUR ---
PATIENT HAVING EMESIS. HAS PROMETHAZINE PO BUT DOES NOT WANT DUE TO EMESIS. WILL NOTIFY DR. WALLACE.
--- NOTE | 2024-11-05 10:50 | NUR ---
ADMINISTERED IV ZOFRAN TO PATIENT. AT THIS TIME PATIENT STILL DOES NOT WANT MORNING MEDICATIONS DUE TO EMESIS. WILL HOLD AND NOTIFY
[2024-11-05 11:41] VITALS: BP 125/68; PULSE 85; RESP 21; TEMP 98.3
--- NOTE | 2024-11-05 12:00 | NUR ---
1200 ORTHO COORDINATOR: PATIENT UTILIZING URINAL, WILL RETURN. 1205 CONFERENCE WITH PRIMARY NURSE REGARDING PATIENT PROGRESS. MEDICATION AND OVERNIGHT HISTORY DISCUSSED. 1210 PRIMARY NURSE IN ATTENDANCE. PATIENT IN BED, AT BEDSIDE. PATIENT REPORTS COMMON TO HAVE POST SURGICAL NAUSEA AND VOMITING. PATIENT DECLINED PHYSICAL THERAPY AND MEDICATIONS THIS MORNING DUE TO NAUSEA. DESCRIBES NAUSEA CONSTANT, NOT RELATED TO POSITION. IV NAUSEA MEDICATION ON BOARD, PATIENT AGREED TO ATTEMPT PO MEDICATION. REVIEWED PATIENT MEDICATION LIST, NAME AND PURPOSE. REVIEWED IMPORTANCE IN PARTICIPATING IN PHYSICAL THERAPY PRIOR TO DISCHARGE AND REINFORCED RATIONALE BEHIND HAVING PATIENT SHOWER WITH PRESENT WHILE IN HOSPITAL. REINFORCED PATIENT NEEDS TO AMBULATE TO THE RESTROOM TO VOID, RATIONALE PROVIDED. PRIMARY NURSE WILL REASSESS PATIENT IN ONE HOUR FOR NAUSEA. STRATEGY AGREED UPON BY PRIMARY NURSE AND PATIENT. 1225 PATIENT STATUS DISCUSSED WITH CHARGE NURSE AND CLINICAL AUTO FINANCE SALES REP. BOTH ACKNOWLEDGED PROPOSED STRATEGY.
[2024-11-05] MEDS: CALCIUM CARB 500MG PO PRN (12:11)
[2024-11-05] MEDS: PROMETHAZINE HCL 25 MG TABLET PO PRN (12:11)
[2024-11-05] MEDS: ASPIRIN 325MG EC TAB PO SCH (12:11)
--- NOTE | 2024-11-05 12:24 | NUR ---
[facility] CM MET WITH PT AND HIS STEVE THIS MORNING IN ROOM, INITIAL ASSESSMENT DONE. PATIENT IS INDEPENDENT PRIOR TO SURGERY, LIVES AT HOME WITH HIS . PATIENT HAS A ROLLATOR WALKER, SHOWER CHAIR, BPM, STANDARD WALKER. DENIES ANY OTHER EQUIPMENT/SERVICES. FEELS SAFE TO GO BACK HOME, ABLE TO ASSIST WITH TRANSPORTATION AND NEEDS NECESSARY. DISCUSSED MD RECOMMENDATIONS FOR HOME HEALTH PT AT HOME, PT AGREEABLE, SIGNED CONSENT [facility] FOR [facility] PT IS CURRENTLY NAUSEATED AND VOMITING AT THIS TIME. ASKED PT IF PRIMARY NURSE GAVE ANYTHING FOR N/V PT STATED YES NURSE JUST GAVE HIM MEDICATION TO HELP WITH N/V. [facility] HOME W/HH ONCE APPROVED. DR WALLACE UPDATED VIA SECURE TEAM CHAT. CM TO CONTINUE TO FOLLOW UP. Addendum: 11/05/24 at 1227 by HEMANTH FALCON LVN Amended: Links added.
[2024-11-05] MEDS: SCOPOLAMINE HYDROBROMIDE 1 EACH ADH..PATCH TD ONE (15:33)
[2024-11-05 16:00] VITALS: BP 132/74; PULSE 91; RESP 19; TEMP 98.1
--- NOTE | 2024-11-05 16:30 | NUR ---
ORTHO COORDINATOR: REINFORCED TEACHING. PATIENT IN BED, AT BEDSIDE. PATIENT WALKED 120 FT WITH PHYSICAL THERAPY AND TOOK A SHOWER. MEDICATION STRATEGY WORKED, NAUSEA SUBSIDED. PATIENT SERVED DINNER, EATING. PATIENT INSTRUCTED IF NAUSEA ONCE DISCHARGED AND PATCH REMOVED, RESUMES TO CONTACT SURGEON'S OFFICE. PATIENT INSTRUCTED TO CONTINUE PAIN MANAGEMENT STRATEGY AT HOME. TO CONTINUE TO PREMEDICATE PRIOR TO PHYSICAL THERAPY AND PERIODS OF HIGH ACTIVITY. PATIENT ENCOURAGED TO CONTINUE FOOT FLEXION/EXTENSION EXERCISES, RATIONALE PROVIDED. PATIENT INSTRUCTED TO CONTINUE WITH INCENTIVE SPIROMETER, UNTIL LEVEL OF ACTIVITY INCREASES TO PRE-SURGICAL AT HOME. REVIEWED HOME HEALTH PHYSICAL THERAPY AND REVIEWED NEXT STEPS. QUESTIONS ANSWERED. PATIENT AND VERBALIZED UNDERSTANDING TO ALL INSTRUCTIONS. PATIENT FEELS CONFIDENT TO DISCHARGE TODAY.
[2024-11-05] MEDS ORDERED: CYCL-309 PO (17:00)
[2024-11-05] MEDS ORDERED: GABA100C PO (17:00)
[2024-11-05] MEDS ORDERED: DOCU-116 PO (17:00)
[2024-11-05] MEDS ORDERED: ACET-2079 PO (17:00)
--- NOTE | 2024-11-05 18:35 | NUR ---
PATIENT IS DISCHARGED. PATIENT IN PAIN AT THIS TIME. ADMINISTERED PAIN MEDICATION BEFORE DEPARTURE. IV TAKEN OUT WITH CATHETER INTACT. REPORT GIVEN TO JOSE BYRD AT [facility]. EDUCATION GIVEN TO PATIENT ON POST OPERATIVE CARE WELL PAIN MANAGEMENT WITH AND WITHOUT MEDICATION. PATIENT TAKEN DOWNSTAIRS BY CAR STEREO INSTALLER.
== END 2024-11-05 18:50 | disposition home or self-care (01) ==
LOC: DAH 06:12 → INTOOBSV 06:13 → OBSVTOIN 06:13 → DAHIP 06:13 → 4CH 12:10 → INTOOBSV 11-05 09:00 → OBSVTOIN 11-05 09:00
PROVIDERS: ADMIT Student in an Organized Health Care Education/Training Program; ATTEND Student in an Organized Health Care Education/Training Program
DX: M17.11 Unilateral primary osteoarthritis, right knee (principal); M25.562 Pain in left knee; I10 Essential (primary) hypertension; D62 Acute posthemorrhagic anemia; Z79.899 Other long term (current) drug therapy; Z98.890 Other specified postprocedural states
CPT/HCPCS: 97161 ×6; 85610; 85730; 84134; 86140; 36415 ×2; 87641; 27447; 96365; 96375; 64447; 73560; 97116 ×3; 97530 ×4; 96376; 96366; 80048; 85027; J1100; A4223 ×2; G0378 ×10; A4663; J7120; J3010; J3490 ×5; J2250; J2704; J2405 ×4; J1885 ×5; J2710; J2795 ×2; J2371; J0690 ×3; C1713 ×2; C1776 ×2; A4649 ×2; A4930; A6255; A5120; A4215; A4222; A4221; A4216; Q0169

== ENCOUNTER 2024-11-21 01:43 | Inpatient (IN) | payer MEDICARE ==
[2024-11-21] VITALS (7 sets, daily range): BP systolic 121–126; BP diastolic 65–82; PULSE 89–103; RESP 17–20; TEMP 97.8–99.2; O2SAT 98
[~2024-11-21] VITALS: Ht 180.3 cm; Wt 89.8 kg
[~2024-11-21 01:43] MED LIST changes: +ACET-2079 PO; +CYCL-309 PO; +DOCU-116 PO; +GABA100C PO
--- NOTE | 2024-11-21 01:59 | ERN ---
General Chief Complaint: Generalized Body Aches Stated Complaint: GBW, N/V Time Seen by MD: 01:45 Source: patient History of Present Illness Initial Comments 74-year-old male with a atrial fibrillation had knee surgery two weeks ago and states he has been throwing up ever since. Nothing he has taken by mouth has stopped his emesis and neither has a scopolamine patch. He comes in feeling weak and lightheaded. Allergies: Coded Allergies: No Known Drug Allergies (Verified Allergy, Unknown, 01/04/19) Uncoded Allergies: BEES (Allergy, Unknown, 11/09/23) Home Meds Active Scripts Docusate Sodium (Colace) 100 Mg Capsule, 1 CAP PO BID for 30 Days, #60 CAP 0 Refills Prov:HARSHAL WALLACE MD 11/05/24 Gabapentin (Neurontin) 100 Mg Capsule, 100 MG PO TID, #90 CAP 0 Refills Prov:HARSHAL WALLACE MD 11/05/24 Cyclobenzaprine HCl (Cyclobenzaprine HCl) 10 Mg Tablet, 5 MG PO Q8H PRN for MUSCLE SPASMS, #45 TAB 0 Refills Prov:HARSHAL WALLACE MD 11/05/24 Acetaminophen with Codeine (Acetaminophen-Cod #3 Tablet) 300 Mg-30 Mg Tablet, 1 TAB PO Q4H PRN for post op pain, #42 TAB 0 Refills Prov:HARSHAL WALLACE MD 11/05/24 Reported Medications Losartan Potassium (Losartan Potassium) 25 Mg Tablet, 25 MG PO HS, TAB 02/19/24 Apixaban (Eliquis) 5 Mg Tablet, 5 MG PO BID, TAB 01/05/19 Past Medical History Past Medical History: A-Fib, Hypertension Past Surgical History: Appendectomy Surgical History Other: KNEE SX, BACK SX, NOSE SX, EYELID SX Constitutional: (-) chills, (-) diaphoresis, (-) fever, (-) malaise, (-) weakness, (-) other documentation EENTM: (-) eye pain, (-) blurred vision, (-) tearing, (-) double vision, (-) ear pain, (-) ear discharge, (-) nose pain, (-) nose congestion, (-) throat pain, (-) Throat swelling, (-) mouth pain, (-) tooth pain, (-) mouth swelling, (-) other documentation Respiratory: (-) cough, (-) orthopnea, (-) short of breath, (-) stridor, (-) wheezing, (-) other documentation Cardiovascular: (-) chest pain, (-) edema, (-) palpitations, (-) syncope, (-) dyspnea on exertion, (-) other documentation Gastrointestinal/Abdominal: (+) nausea, (+) vomiting Genitourinary: (-) penile discharge, (-) dysuria, (-) frequency, (-) hematuria, (-) pain, (-) other documentation Musculoskeletal: (-) Neck pain, (-) back pain, (-) Flank Pain, (-) joint pain, (-) joint swelling, (-) muscle pain, (-) muscle stiffness, (-) gout, (-) other documentation Physical Exam General Appearance: (+) mild distress Orientation: (+) alert, (+) oriented x 3 Head/Face Trauma: No Eye: bilateral eye normal inspection, bilateral eye PERRL, bilateral eye EOMI Ear, Nose, Throat: (+) hearing grossly normal, (+) normal ENT inspection, (+) moist mucous membraine Neck: (+) normal inspection, (+) supple, (+) full range of motion, (+) no JVD Respiratory: (+) chest non-tender, (+) lungs clear, (+) well ventilated Heart: (+) irregular Vascular: (-) no edema, (-) normal peripheral pulse, (-) no JVD, (-) abdominal aorta, (-) abnormal peripheral pulse, (-) carotid bruit, (-) edema, (-) JVD, (-) varicose vein, (-) other documentation Gastrointestinal: (+) soft, (+) non-tender, (+) bowel sound present Results Laboratory and Microbiology Lab and Micro Result Laboratory Tests Test 11/21/24 02:10 11/21/24 03:42 White Blood Count 19.6 K/uL (4.8-10.8) H Red Blood Count 5.50 MIL/uL (4.50-6.20) Hemoglobin 16.5 g/dL (14.0-18.0) Hematocrit 47.4 % (42-54) Mean Corpuscular Volume 86.2 fL (79-99) Mean Corpuscular Hemoglobin 30.0 pg (27.0-33.0) Mean Corpuscular Hemoglobin Concent 34.8 g/dL (32.0-36.0) Red Cell Distribution Width 12.8 % (11.0-15.5) Platelet Count 584 K/uL (130-400) H Mean Platelet Volume 9.4 fL (7.5-10.5) Immature Granulocyte % (Auto) 0.6 % (0-1) Neutrophils (%) (Auto) 65.0 % (40.0-77.0) Lymphocytes (%) (Auto) 17.0 % (21.0-51.0) L Monocytes (%) (Auto) 6.1 % (3.0-13.0) Eosinophils (%) (Auto) 11.0 % (0.0-8.0) H Basophils (%) (Auto) 0.3 % (0.0-5.0) Neutrophils # (Auto) 12.8 K/uL (1.8-7.7) H Lymphocytes # (Auto) 3.3 K/uL (1.0-4.8) Monocytes # (Auto) 1.2 K/uL (0.1-1.0) H Eosinophils # (Auto) 2.15 K/uL (0.00-0.70) H Basophils # (Auto) 0.06 K/uL (0.00-0.20) Absolute Immature Granulocyte (auto 0.11 K/uL (0-1) Nucleated Red Blood Cells 0.0 % (0.0-0.19) Sodium Level 136 mmol/L (136-145) Potassium Level 3.8 mmol/L (3.5-5.1) Chloride Level 95 mmol/L (101-111) L Carbon Dioxide Level 28 mmol/L (21-32) Blood Urea Nitrogen 17 mg/dL (7-18) Creatinine 0.9 mg/dL (0.5-1.3) Glomerular Filtration Rate Calc 91 mL/min (>90) Random Glucose 123 mg/dL (70-105) H Lactic Acid Level 3.2 mmol/L (0.8-2.5) H Total Calcium 10.2 mg/dL (8.5-10.1) H Total Bilirubin 0.8 mg/dL (0.2-1.0) Aspartate Amino Transf (AST/SGOT) 14 U/L (10-37) Alanine Aminotransferase (ALT/SGPT) 20 U/L (12-78) Alkaline Phosphatase 174 U/L (50-136) H Total Protein 7.4 g/dL (6.0-8.3) Albumin 3.8 g/dL (3.5-5.0) Urine Color YELLOW (YELLOW) Urine Appearance CLEAR (CLEAR) Urine pH 6.5 (5.0-8.0) Urine Specific [place] 1.024 (1.001-1.031) Urine Protein 20 mg/dL (NEGATIVE) H Urine Glucose (UA) NEGATIVE mg/dL (NEGATIVE) Urine Ketones 60 mg/dL (NEGATIVE) H Urine Occult Blood NEGATIVE (NEGATIVE) Urine Nitrate NEGATIVE (NEGATIVE) Urine Bilirubin NEGATIVE mg/dL (NEGATIVE) Urine Urobilinogen 0.2 mg/dL (0.2-1.0) Urine Leukocyte Esterase NEGATIVE [place]/uL Urine RBC 2-5 /HPF (0-1) H Urine WBC 2-5 /HPF (0-1) H Urine Squamous Epithelial Cells RARE /HPF (0-2) Urine Bacteria None /HPF (None Seen) Urine Hyaline Casts 6-10 /LPF (0-1 /LPF) H MDM MDM: Differential diagnosis: Dehydration, prolonged reaction to anesthesia, gastroenteritis, biliary colic, UTI, electrolyte abnormality, intestinal blockage. Rationale: Tests considered and ordered secondary to shared decision making include: Previous outside records reviewed: Old ER visits. Risk of complication and/or morbidity or mortality of patient management: None Medications-Per medication reconciliation Need for hospitalization: Patient does meet criteria for hospitalization. Need for emergency major/minor surgery: No There are no social concerns with this patient. Prescription drug management Prescriptions will include symptomatic care Patient's prior external medical records from other ER visits were reviewed by me as indicated. Prior testing and results from previous visits were reviewed. Prior tests were taken into account with medical decision making and resource utilization, independent historian/historians were used to obtain complete medical history. I independently interpreted the test that were performed, results were reviewed by me and considered findings on radiology if ordered. Patient's CBC shows a white blood cell count [place] proximally [id number]. Patient's chemistry panel shows mild hypochloremia, lactic acid of 3.2. Urine is positive for ketones at a high level. A CT scan of the abdomen shows mild possible gastroenteritis. There is some white opaque material in his stomach which I do not know the source of this. Radiologist does not comment on it. Given patient's high serum lactate level and high white blood cell count the patient needs to be admitted to the hospital for further studies and resuscitation. I discussed the case with the hospitalist and they have agreed to admit him. ED Course Orders Procedure Category Date Status Time Comprehensive LAB 11/21/24 Complete Metabolic Panel 01:53 Cbc With Differential LAB 11/21/24 Complete 01:53 Lactic Acid LAB 11/21/24 Complete 01:53 12 Lead Ekg Tracing- EKG 11/21/24 Logged Technical 01:53 Ondansetron 4mg Inj PHA 11/21/24 Complete (Zofran 4mg Inj) 02:00 Lactated Ringers PHA 11/21/24 Complete 1000ml (Lactated 01:53 Abd 1vw RAD 11/21/24 Resulted 01:59 Lactated Ringers PHA 11/21/24 Complete 1000ml (Lactated 03:14 Ct Abdomen/Pelvis CT 11/21/24 Resulted W/Wo Contras 03:14 Urinalysis LAB 11/21/24 Complete W/Microscopic 03:42 Iohexol (Omnipaque) PHA 11/21/24 Complete 04:27 Lactic Acid (Removed) LAB 11/21/24 Logged 05:21 Lactic Acid LAB 11/21/24 Logged 05:25 Current Medications Medications (Trade) Dose Ordered Sig/Anabella Route PRN Reason Start Time Stop Time Status Last Admin Dose Admin Iohexol (Omnipaque) 35,000 mg STK-MED ONCE IV 11/21/24 04:27 11/21/24 04:28 DC Lactated Ringer's (Lactated Ringers 1000ml) 1,000 ml BOLUS STAT IV 11/21/24 01:53 11/21/24 01:59 DC 11/21/24 02:03 Lactated Ringer's (Lactated Ringers 1000ml) 1,000 ml BOLUS STAT IV 11/21/24 03:14 11/21/24 03:18 DC 11/21/24 04:04 Ondansetron HCl (zoFRAN 4MG INJ) 4 mg ONCE ONCE IVP 11/21/24 02:00 11/21/24 02:01 DC 11/21/24 02:03 Vital Signs Date Time Temp Pulse Resp B/P (MAP) Pulse Ox O2 Delivery O2 Flow Rate FiO2 11/21/24 05:14 98.2 108 20 135/72 96 Room Air* 0 21 11/21/24 02:22 98.2 97 20 138/77 100 Room Air* 0 21 11/21/24 01:44 99.0 95 18 126/76 98 Room Air 0 DX & DISP Disposition: Inpatient Departure Impression: Primary Impression: Lactic acid blood increased Additional Impressions: Gastroenteritis, Ketonuria Condition: Stable Referrals: JONI TORRES MD (PCP) BERNICE SIMMONS MD Nov 21, 2024 01:59
[2024-11-21] MEDS: LACTATED RINGERS 1000ML IV STA ×2 (02:03→04:04)
[2024-11-21 02:22] LABS: IMMATURE GRANULOCYTE ABSOLUTE 0.11 K/uL (0-1); NUCLEATED RED BLOOD CELLS 0.0 % (0.0-0.19); PLATELET COUNT (AUTO) 584 K/uL (130-400); RED BLOOD CELL COUNT(AUTO) 5.50 MIL/uL (4.50-6.20); RED CELL DISTRIBUTION WIDTH 12.8 % (11.0-15.5); WHITE BLOOD COUNT (AUTO) 19.6 K/uL (4.8-10.8)
[2024-11-21 02:30] LABS: CREATININE 0.9 mg/dL (0.5-1.3); GLOMERULAR FILTR. RATE CALC 91.0 mL/min (>90); GLUCOSE,RANDOM 123.0 mg/dL (70-105); SODIUM SERUM 136.0 mmol/L (136-145); UREA NITROGEN, BLOOD 17.0 mg/dL (7-18)
[2024-11-21 02:35] LABS: ASPARTATE AMINOTRANSFERASE 14.0 U/L (10-37); TOTAL PROTEIN, SERUM 7.4 g/dL (6.0-8.3)
--- NOTE | 2024-11-21 03:33 | HMCIMG ---
EXAM: CR Abdomen, 2 views CLINICAL HISTORY: Pain. COMPARISON: None provided. FINDINGS: Nonobstructed nonspecific bowel gas pattern. No free air is evident. Presumed tiny pelvic phleboliths. No No aggressive appearing osseous lesion. Degenerative osseous changes. IMPRESSION: No acute process. /[place]
[2024-11-21 04:05] LABS: APPEARANCE,URINE CLEAR (CLEAR); GLUCOSE, URINE (UA) NEGATIVE (NEGATIVE); LEUKOCYTE ESTERASE ,URINE NEGATIVE Leu/uL (NEGATIVE); NITRATE,URINE NEGATIVE (NEGATIVE); OCCULT BLOOD,URINE NEGATIVE (NEGATIVE); SQUAMOUS EPITHELIAL CELL,UR RARE /HPF (0-2)
[2024-11-21] MEDS ORDERED: IOHEXOL 350 MG/ML 100ML INFUS..BTL IV ONE (04:27)
--- NOTE | 2024-11-21 05:18 | HMCIMG ---
EXAM: CT Abdomen and Pelvis without and with IV contrast CLINICAL HISTORY: Nausea and vomiting for 3 weeks. TECHNIQUE: Pre and post-contrast thin collimated axial CT images of the abdomen and pelvis were obtained, with sagittal and coronal reformatted images also submitted. CT scan is done according to ALARA (As Low As Reasonably Achievable). COMPARISON: CT abdomen and pelvis dated 09/18/2022. FINDINGS: Mild bibasilar subsegmental atelectasis. No focal abnormality within the liver, gallbladder, pancreas, spleen, or adrenals. Parapelvic renal cysts bilaterally. 1.1 cm nonenhancing Bosniak class I cyst in the left renal midpole. The urinary bladder is suboptimally distended and grossly unremarkable. The prostate is normal in size. Subtle mucosal thickening in the small and large bowel loops, concerning mild acute enterocolitis. No bowel dilatation or obstruction. Uncomplicated colonic diverticula. The appendix is not visualized. No inflammatory changes around the cecum. Mild calcific atherosclerotic disease in the abdominal aorta and its branches. No pathological lymphadenopathy in the abdomen or pelvis. No ascites or pneumoperitoneum. No acute bony abnormality is evident. Degenerative osseous changes. Small, uncomplicated fat-containing inguinal hernias bilaterally. Surgical clips in the bilateral inguinal scrotal regions. IMPRESSIONS: Questionable mild acute enterocolitis. Uncomplicated colonic diverticula. Parapelvic renal cysts bilaterally. Bosniak class I cyst in the left kidney. Compared to the prior study, there is no significant interval change. /[place]
[2024-11-21] MEDS: 1/2 NS 1000ML 1,000 ML IV SCH (05:48)
--- NOTE | 2024-11-21 06:37 | EKG ---
[facility] Test Date: 2024-11-21 Test Time: 02:17:29 Pat Name: NAOMI JUSTIN Department: [facility] Room: 322 Gender: M [employer] Executive Director: [id number] : 1950 Requested By: BERNICE SIMMONS Order Number: [id number] Reading MD: Antonino Cao Measurements Intervals [place] Rate: 98 P: 14 VT: 199 QRS: -26 QRSD: 97 T: 27 QT: 382 QTc: 488 Interpretive Statements Sinus rhythm Compared to ECG 02/19/2024 11:55:27 First degree AV block no longer present Electronically Signed On 11-21-2024 18:26:23 CDT by Antonino Cao Please click the below link to view image of tracing.
--- NOTE | 2024-11-21 07:05 | NUR ---
ASSUMED CARE OF PT
--- NOTE | 2024-11-21 08:25 | NUR ---
REPORT GIVEN TO NURSE ALVARADO
--- NOTE | 2024-11-21 12:09 | NUR ---
DCP:HOME Pt currently lives with his Lynette Saini [phone]. Pt does have a walker at home that he has been using since his knee surgery. Pt does not have home health or provider services. Pt states that he is able to bathe himself for the most part and his has only been helping him recently. PCP is Dr. Ho Brandt and uses [facility] for any RX needs. At [place] pt will want to go home and family can assist with transportation. Addendum: 11/21/24 at 1213 by KELLEN JANE SS Amended: Links added.
--- NOTE | 2024-11-21 13:29 | NUR ---
ORTHO Notified Dr. Brandt that patient admitted within 30 days of right TKA with Dr. Montgomery. Dr. Brandt said no need to consult to but to notify her. Ortho coordinator Emilie notified of patient readmission and stated she will communicate the information with Dr. Montgomery.
--- NOTE | 2024-11-21 21:31 | HP ---
HISTORY AND PHYSICAL NOTE DATE OF CONSULTATION: 11/21/24 REASON FOR CONSULTATION: Nausea vomiting and diarrhea HISTORY OF PRESENT ILLNESS: 74-year-old male with a atrial fibrillation had knee surgery two weeks ago and states he has been throwing up ever since. Nothing he has taken by mouth has stopped his emesis and neither has a scopolamine patch. He comes in feeling weak and lightheaded. Allergies: Coded Allergies: No Known Drug Allergies (Verified Allergy, Unknown, 01/04/19) Uncoded Allergies: BEES (Allergy, Unknown, 11/09/23) Home Meds Active Scripts Docusate Sodium (Colace) 100 Mg Capsule, 1 CAP PO BID for 30 Days, #60 CAP 0 Refills Prov:HARSHAL WALLACE MD 11/05/24 Gabapentin (Neurontin) 100 Mg Capsule, 100 MG PO TID, #90 CAP 0 Refills Prov:HARSHAL WALLACE MD 11/05/24 Cyclobenzaprine HCl (Cyclobenzaprine HCl) 10 Mg Tablet, 5 MG PO Q8H PRN for MUSCLE SPASMS, #45 TAB 0 Refills Prov:HARSHAL WALLACE MD 11/05/24 Acetaminophen with Codeine (Acetaminophen-Cod #3 Tablet) 300 Mg-30 Mg Tablet, 1 TAB PO Q4H PRN for post op pain, #42 TAB 0 Refills Prov:HARSHAL WALLACE MD 11/05/24 Reported Medications Losartan Potassium (Losartan Potassium) 25 Mg Tablet, 25 MG PO HS, TAB 02/19/24 Apixaban (Eliquis) 5 Mg Tablet, 5 MG PO BID, TAB 01/05/19 Past History Past Medical History Past Medical History: A-Fib, Hypertension Past Surgical History: Appendectomy Surgical History Other: KNEE SX, BACK SX, NOSE SX, EYELID SX Review of Systems Constitutional: (-) chills, (-) diaphoresis, (-) fever, (-) malaise, (-) weakness, (-) other documentation EENTM: (-) eye pain, (-) blurred vision, (-) tearing, (-) double vision, (-) ear pain, (-) ear discharge, (-) nose pain, (-) nose congestion, (-) throat pain, (-) Throat swelling, (-) mouth pain, (-) tooth pain, (-) mouth swelling, (-) other documentation Respiratory: (-) cough, (-) orthopnea, (-) short of breath, (-) stridor, (-) wheezing, (-) other documentation Cardiovascular: (-) chest pain, (-) edema, (-) palpitations, (-) syncope, (-) dyspnea on exertion, (-) other documentation Gastrointestinal/Abdominal: (+) nausea, (+) vomiting Genitourinary: (-) penile discharge, (-) dysuria, (-) frequency, (-) hematuria, (-) pain, (-) other documentation Musculoskeletal: (-) Neck pain, (-) back pain, (-) Flank Pain, (-) joint pain, (-) joint swelling, (-) muscle pain, (-) muscle stiffness, (-) gout, (-) other documentation ALLERGIES: Coded Allergies: No Known Drug Allergies (Verified Allergy, Unknown, 01/04/19) Uncoded Allergies: BEES (Allergy, Unknown, 11/09/23) HOME MEDS: Active Scripts Docusate Sodium (Colace) 100 Mg Capsule, 1 CAP PO BID for 30 Days, #60 CAP 0 Refills Prov:HARSHAL WALLACE MD 11/05/24 Gabapentin (Neurontin) 100 Mg Capsule, 100 MG PO TID, #90 CAP 0 Refills Prov:HARSHAL WALLACE MD 11/05/24 Cyclobenzaprine HCl (Cyclobenzaprine HCl) 10 Mg Tablet, 5 MG PO Q8H PRN for MUSCLE SPASMS, #45 TAB 0 Refills Prov:HARSHAL WALLACE MD 11/05/24 Acetaminophen with Codeine (Acetaminophen-Cod #3 Tablet) 300 Mg-30 Mg Tablet, 1 TAB PO Q4H PRN for post op pain, #42 TAB 0 Refills Prov:HARSHAL WALLACE MD 11/05/24 Reported Medications Losartan Potassium (Losartan Potassium) 25 Mg Tablet, 25 MG PO HS, TAB 02/19/24 Apixaban (Eliquis) 5 Mg Tablet, 5 MG PO BID, TAB 01/05/19 INPATIENT MEDS: Current Medications Medications Dose Ordered Sig/Anabella Start Time Stop Time Status Last Admin Sodium Chloride 1,000 ml @ 150 mls/hr Q6H40M 11/21/24 05:30 12/21/24 05:29 11/21/24 18:25 Pantoprazole Sodium 40 mg DAILY 11/21/24 09:00 12/21/24 08:59 11/21/24 08:34 Ondansetron HCl 4 mg Q4H PRN 11/21/24 05:30 12/21/24 05:29 11/21/24 11:10 Acetaminophen 650 mg Q6H PRN 11/21/24 12:00 12/21/24 11:59 11/21/24 21:19 VITAL SIGNS Vital Signs Date Time Temp Pulse Resp B/P (MAP) Pulse Ox O2 Delivery O2 Flow Rate FiO2 11/21/24 16:00 98.1 90 17 126/75 96 Room Air 11/21/24 12:00 97.9 92 18 125/82 97 Room Air 11/21/24 09:00 98 Room Air* 0 11/21/24 09:00 98 Room Air* 0 11/21/24 08:55 98.1 91 20 128/69 97 Room Air* 0 11/21/24 08:00 98.1 103 18 121/72 98 Room Air 11/21/24 07:56 98.1 95 20 141/72 96 Room Air* 0 11/21/24 06:37 98.2 103 20 145/71 96 Room Air* 0 11/21/24 05:14 98.2 108 20 135/72 96 Room Air* 0 11/21/24 02:22 98.2 97 20 138/77 100 Room Air* 0 11/21/24 01:44 99.0 95 18 126/76 98 Room Air 0 PHYSICAL EXAM Physical Exam Physical Exam General Appearance: (+) mild distress Orientation: (+) alert, (+) oriented x 3 Head/Face Trauma: No Eye: bilateral eye normal inspection, bilateral eye PERRL, bilateral eye EOMI Ear, Nose, Throat: (+) hearing grossly normal, (+) normal ENT inspection, (+) moist mucous membraine Neck: (+) normal inspection, (+) supple, (+) full range of motion, (+) no JVD Respiratory: (+) chest non-tender, (+) lungs clear, (+) well ventilated Heart: (+) irregular Vascular: (-) no edema, (-) normal peripheral pulse, (-) no JVD, (-) abdominal aorta, (-) abnormal peripheral pulse, (-) carotid bruit, (-) edema, (-) JVD, (-) varicose vein, (-) other documentation Gastrointestinal: (+) soft, (+) non-tender, (+) bowel sound present The knee joint does not look inflamed or unusually tender LABORATORY RESULTS Laboratory Tests 11/21/24 02:10: White Blood Count 19.6, Red Blood Count 5.50, Hemoglobin 16.5, Hematocrit 47.4, Mean Corpuscular Volume 86.2, Mean Corpuscular Hemoglobin 30.0, Mean Corpuscular Hemoglobin Concent 34.8, Red Cell Distribution Width 12.8, Platelet Count 584, Mean Platelet Volume 9.4, Immature Granulocyte % (Auto) 0.6, Neutrophils (%) (Auto) 65.0, Lymphocytes (%) (Auto) 17.0, Monocytes (%) (Auto) 6.1, Eosinophils (%) (Auto) 11.0, Basophils (%) (Auto) 0.3, Neutrophils # (Auto) 12.8, Lymphocytes # (Auto) 3.3, Monocytes # (Auto) 1.2, Eosinophils # (Auto) 2.15, Basophils # (Auto) 0.06, Absolute Immature Granulocyte (auto 0.11, Nucleated Red Blood Cells 0.0, Sodium Level 136, Potassium Level 3.8, Chloride Level 95, Carbon Dioxide Level 28, Blood Urea Nitrogen 17, Creatinine 0.9, Glomerular Avi tration Rate Calc 91, Random Glucose 123, Lactic Acid Level 3.2, Total Calcium 10.2, Total Bilirubin 0.8, Aspartate Amino Transf (AST/SGOT) 14, Alanine Aminotransferase (ALT/SGPT) 20, Alkaline Phosphatase 174, Total Protein 7.4, Albumin 3.8 11/21/24 03:42: Urine Color YELLOW, Urine Appearance CLEAR, Urine pH 6.5, Urine Specific [place] 1.024, Urine Protein 20, Urine Glucose (UA) NEGATIVE, Urine Ketones 60, Urine Occult Blood NEGATIVE, Urine Nitrate NEGATIVE, Urine Bilirubin NEGATIVE, Urine Urobilinogen 0.2, Urine Leukocyte Esterase NEGATIVE, Urine RBC 2-5, Urine WBC 2- 5, Urine Squamous Epithelial Cells RARE, Urine Bacteria None, Urine Hyaline Casts 6-10 11/21/24 07:26: Lactic Acid Level 1.3 PROBLEM LIST: (1) Lactic acid blood increased ICD Codes: R79.89 - Other specified abnormal findings of blood chemistry (2) Generalized weakness ICD Codes: R53.1 - Weakness (3) Nonspecific abdominal pain ICD Codes: R10.9 - Unspecified abdominal pain (4) Gastroenteritis ICD Codes: K52.9 - Noninfective gastroenteritis and colitis, unspecified PLAN Primarily dehydration IV fluids to be given and monitor follow up with labs tomorrow SUSANA LEVY MD Nov 21, 2024 21:31
[2024-11-22 04:00] VITALS: BP 127/82; PULSE 87; RESP 19; TEMP 98
--- NOTE | 2024-11-22 06:36 | HMCIMG ---
EXAMINATION: ULTRASOUND OF THE ABDOMEN (LIMITED) WITH COLOR DOPPLER. CLINICAL HISTORY: To rule out gall stones. COMPARISON: CT abdomen and pelvis with contrast from the same day. TECHNIQUE: Real-time grayscale ultrasound images of the abdomen. In addition, color Doppler is medically necessary to perform in order to evaluate vascularity and blood flow. FINDINGS: Liver: Normal in caliber, the right hepatic lobe measures 15.4 cm in the craniocaudal dimension. There is increased echogenicity of the hepatic parenchyma. There is no focal hepatic abnormality or intrahepatic biliary ductal dilatation. There is normal spectral Doppler of the main portal vein. Gallbladder: Within normal limits with normal wall thickness (0.27 cm). No hyperemia or pericholecystic free fluid. There is no cholelithiasis. Common bile duct is normal in caliber, measuring 0.45 cm. Pancreas: Head appears normal in caliber and echotexture. No calcification or dilated pancreatic duct. Body and tail are obscured by overlying bowel gas. The right kidney is normal in caliber, the right kidney measures 11.2 x 6.1 x 6.0 cm in craniocaudal, AP, and transverse dimensions respectively. There is normal renal cortical thickness, and cortical echogenicity. There is no renal calculus or hydronephrosis. IMPRESSION: Hepatic steatosis. /[place]
[2024-11-22 06:40] LABS: IMMATURE GRANULOCYTE ABSOLUTE 0.10 K/uL (0-1); NUCLEATED RED BLOOD CELLS 0.0 % (0.0-0.19); PLATELET COUNT (AUTO) 376 K/uL (130-400); RED BLOOD CELL COUNT(AUTO) 4.67 MIL/uL (4.50-6.20); RED CELL DISTRIBUTION WIDTH 13.1 % (11.0-15.5); WHITE BLOOD COUNT (AUTO) 13.5 K/uL (4.8-10.8)
[2024-11-22 07:06] LABS: ASPARTATE AMINOTRANSFERASE 12.0 U/L (10-37); CREATININE 0.7 mg/dL (0.5-1.3); GLOMERULAR FILTR. RATE CALC 98.0 mL/min (>90); GLUCOSE,RANDOM 90.0 mg/dL (70-105); SODIUM SERUM 136.0 mmol/L (136-145); TOTAL PROTEIN, SERUM 6.2 g/dL (6.0-8.3); UREA NITROGEN, BLOOD 9.0 mg/dL (7-18)
[2024-11-22 08:00] VITALS: BP 137/72; PULSE 85; RESP 18; TEMP 97.8; O2SAT 96
[2024-11-22 12:06] VITALS: BP 128/69; PULSE 85; RESP 18; TEMP 98
--- NOTE | 2024-11-22 12:18 | NUR ---
PATIENT DISCHARGED. IV REMOVED INTACT. ALL BELONGINGS GATHERED BY PATIENT AND SIGNIFICANT OTHER. VERBALIZED UNDERSTANDING WITH FOLLOW APPOINTMENT. ALL QUESTIONS AND CONCERNS ANSWERED.
== END 2024-11-22 12:15 | disposition home or self-care (01) | DRG 641 ==
LOC: EDH 01:43 → EDHIP 05:30 → OBSVTOIN 09:00 → 3DH 09:00
PROVIDERS: ADMIT Internal Medicine; ATTEND Internal Medicine
DX: E86.0 Dehydration (principal); K52.9 Noninfective gastroenteritis and colitis, unspecified; E87.20 Acidosis, unspecified; I10 Essential (primary) hypertension; Z90.49 Acquired absence of other specified parts of digestive tract
CPT/HCPCS: 36415; 74018; 74178; 76705; 80053; 81001; 83605; 85025; 93005; 96374; 96375; 99285; G0378; J2405; J2470; J7120; Q9967

== ENCOUNTER 2025-01-28 10:55 | Day surgery (SDC) | payer MEDICARE ==
[2025-01-28] VITALS (11 sets, daily range): BP systolic 114–143; BP diastolic 52–75; PULSE 72–96; RESP 14–18; TEMP 97.1–97.8
[~2025-01-28] VITALS: Ht 180.3 cm; Wt 83.0 kg
[~2025-01-28 10:55] MED LIST changes: -ACET-2079 PO; -CYCL-309 PO; -DOCU-116 PO; -GABA100C PO; +PANT40TA54 PO
[2025-01-28] MEDS: 0.9%NACL 1000ML 1,000 ML IV ONE (11:37)
== END 2025-01-28 14:09 | disposition home or self-care (01) ==
LOC: ENDO 10:55 → DAH 10:55 → ENDO 14:09
PROVIDERS: ATTEND Internal Medicine Gastroenterology
DX: K31.5 Obstruction of duodenum (principal); K22.2 Esophageal obstruction; K21.00 Gastro-esophageal reflux disease with esophagitis, without bleeding; K29.00 Acute gastritis without bleeding; I10 Essential (primary) hypertension; I48.91 Unspecified atrial fibrillation; Z79.01 Long term (current) use of anticoagulants; Z79.899 Other long term (current) drug therapy
CPT/HCPCS: 43245; J7030; J2704; J2405; C1726; A4620; A4215; J3490